=== PATIENT | male | born 1955 | race Caucasian/White ===

== ENCOUNTER 2022-10-11 12:23 | Inpatient (IN) | payer MEDICARE, BC ==
[2022-10-11] VITALS (8 sets, daily range): BP systolic 108–138; BP diastolic 46–73; PULSE 79–95; TEMP 98.4
[~2022-10-11] VITALS: Ht 182.9 cm; Wt 150.0 kg
[~2022-10-11 12:23] MED LIST: CALCIUM 600-D 61 TAB PO; CEFTIN 250250 MG/TAB PO; COREG12.5 MG PO; COZAAR100 MG PO; DIFICID200 MG PO; DITROPAN XL 5MG5 M1 PO; EFFEXOR XR37.5 MG/CA PO; ELIQUIS 5MG PO; EUTHYROX100 MCG PO; INLYTA1 MG PO; IRON TABLETS325 MG PO; KEYTRUDA25 MG/ML IV; LIPITOR 10MG10 MG PO; NORVASC 10MG10 MG PO; OXYGEN NASAL.CANN; RITALIN10 MG PO; SPIRIVA RE2.5 MCG/Ac IH; VITAMIN B-6100 MG PO; ZYRTEC ALLERGY10 MG PO
[2022-10-11 14:42] LABS: BASO % 0.4 % (0.0-2.0); EOS # 0.3 K/mm3 (0.0-0.7); EOS % 3.6 % (0.0-4.0); GRAN # 5.2 K/mm3 (1.4-6.5); GRAN % 69.6 % (42.2-75.2); HEMOGLOBIN 11.9 g/dl (13.5-18.0); LYMPH # 0.9 K/mm3 (1.2-3.4); LYMPH % 11.4 % (20.0-51.0); MEAN CELL VOLUME 89 fl (80.0-100.0); MEAN CORPUSCULAR HEMOGLOBIN 30 pg (27-31); MEAN CORPUSCULAR HGB CONC 33 g/dl (33.0-37.0); MEAN PLATELET VOLUME 10.4 fl (7.4-10.4); MONO # 1.1 K/mm3 (0.1-0.6); MONO % 14.7 % (1.7-9.3); PLATELET COUNT 225 K/mm3 (130-400); RED BLOOD COUNT 4.03 M/mm3 (4.20-5.60); REDCELL DISTRIBUTION WIDTH-CV 14.5 % (11.5-14.5)
[2022-10-11 14:47] LABS: HEMATOCRIT 35.9 % (42.0-52.0)
[2022-10-11 14:57] LABS: ALBUMIN 3.5 gm/dL (3.4-4.8); BILIRUBIN,TOTAL 0.7 mg/dL (0.2-1.2); CALCIUM 9.1 mg/dL (8.4-10.2); CREATININE, serum 1.38 mg/dL (0.72-1.25); TOTAL PROTEIN 7.3 gm/dL (6.2-8.1)
[2022-10-11 15:40] LABS: COLLECTION METHOD CLEAN CATCH
[2022-10-11 15:54] LABS: PH 8.5 (5.0-8.5); URINE APPEARANCE Cloudy (CLEAR/HAZY); URINE BLOOD 3+ (NEGATIVE); URINE COLOR Red (YELLOW); URINE GLUCOSE TRACE (NEGATIVE); URINE KETONE 1+ (NEGATIVE); URINE NITRATE Positive (NEGATIVE); URINE PROTEIN(semi-quant) 3+ (NEGATIVE)
[2022-10-11 16:12] LABS: SQUAMOUS EPITHELIAL None Seen /hpf (0-10); URINE BACTERIA None Seen /hpf (NONE SEEN); URINE RBC >50 /hpf (0-2)
[2022-10-12] VITALS (23 sets, daily range): BP systolic 71–125; BP diastolic 45–72; PULSE 66–134; TEMP 97.7–98.9
[2022-10-12 04:49] LABS: BASO % 0.4 % (0.0-2.0); EOS # 0.3 K/mm3 (0.0-0.7); EOS % 3.2 % (0.0-4.0); GRAN # 5.8 K/mm3 (1.4-6.5); GRAN % 74.9 % (42.2-75.2); HEMOGLOBIN 10.1 g/dl (13.5-18.0); LYMPH # 0.5 K/mm3 (1.2-3.4); LYMPH % 6.4 % (20.0-51.0); MEAN CORPUSCULAR HEMOGLOBIN 30 pg (27-31); MEAN CORPUSCULAR HGB CONC 32 g/dl (33.0-37.0); MEAN PLATELET VOLUME 10.4 fl (7.4-10.4); MONO # 1.2 K/mm3 (0.1-0.6); MONO % 14.8 % (1.7-9.3); PLATELET COUNT 186 K/mm3 (130-400); RED BLOOD COUNT 3.39 M/mm3 (4.20-5.60); REDCELL DISTRIBUTION WIDTH-CV 14.8 % (11.5-14.5)
[2022-10-12 04:52] LABS: HEMATOCRIT 31.7 % (42.0-52.0); MEAN CELL VOLUME 94 fl (80.0-100.0)
[2022-10-12 05:07] LABS: CREATININE, serum 1.14 mg/dL (0.72-1.25); MAGNESIUM 2.1 mg/dL (1.6-2.6); POTASSIUM 4.1 mmol/L (3.5-4.5)
--- NOTE | 2022-10-12 08:06 | NUR ---
RECEIVED REPORT FROM PACU NURSE AT 192. RECEIVED PT AT 194. PT ON CBI WITH THE COLOR OF THE OUTPUT IN THE OSULLIVAN TO BE LIGHT PICK IN THE TUBING AND RED IN THE BAG. PT DENIES HAVING PAIN AT THIS TIME. PT HAD TWO TIMES WHERE THE HR WENT UP IN THE 120'S AND THE FIRST TIME IT SEEMED IRREGULAR AND GOT PT ON TELE AND GOT AN EKG, HOSPITALIST WAS NOTIFED. WAS GOING TO START A CARDIZEM DRIP BUT PT'S HR WAS SR IN THE 80'S AND THE SECOND TIME THE HR WENT DOWN IN ABOUT 20 MINUTES. AROUND 0600 THE PT HAD 11 RUN OF V TACH RATE OF 174 EVANGELIDIS AND DAY SHIFT HOSPITALIST WERE NOTIFED. PT WENT THROUGH 20 BAGS OF CBI. PT HAD A CLOT TORWARD THE TOP THE THE [place]IVAN TUBING BUT FLUID WAS ABLE TO PASS, TRIED TO MASSAGE IT OUT BUT IT WOULD NOT MOVE, NOTIFED CHARGE. THIS NURSE KEPT AN EYE ON IT AND LET DAY SHIFT NURSE KNOW IN REPORT OF THIS AND THE OTHER EVENTS.
[2022-10-12] MEDS ORDERED: CEFTIN 250250 MG/TAB PO (08:25)
[2022-10-12 08:26] LABS: HEMOGLOBIN 10.2 g/dl (13.5-18.0)
[2022-10-12 08:38] LABS: HEMATOCRIT 30.9 % (42.0-52.0)
--- NOTE | 2022-10-12 08:45 | NUR ---
given status update on patient. Orders obtained. Patient made NPO. Bates placed to traction after hand irrigation completed. Few clots obtained. CBI remains to fast rate with jarrett red output. Cardiology was paged for consult & made aware urology would like hospitalist to be attending.
--- NOTE | 2022-10-12 11:20 | NUR ---
visited briefly with patient. Patient was waiting for a procedure. Spouse is a retired director of spa and guest experience. Nothing else needed at this time.
--- NOTE | 2022-10-12 13:00 | NUR ---
Dr.Evangelidis elam. Plan of care reviewed. Consent obtained prior to receiving pain medication. CBI off at this time. Paulo crowe DD.
--- NOTE | 2022-10-12 14:00 | NUR ---
Patient to the OR with Lucita, remains in room.
--- NOTE | 2022-10-12 16:15 | NUR ---
called & reminded of consult, he has yet to see patient. new order placed
[2022-10-12 16:16] LABS: HEMOGLOBIN 9.9 g/dl (13.5-18.0)
--- NOTE | 2022-10-12 16:50 | NUR ---
Called by telecommunications field engineer Max patient heart rate elevated, called & notified. Orders obtained. Coreg Po & Metoprolol Iv given per orders.
--- NOTE | 2022-10-12 17:00 | NUR ---
Patient having bladder pain/spasm. Order for Levsin & Azo Obtain from Dr. Hayward & given to patient for discomfort.
--- NOTE | 2022-10-12 17:30 | NUR ---
Patient called out due to continued increased pain. Patient given roxicodne for pain per patient request. Patient sena remains to DD with pale clear output. Hand irrigation completed to make sure no clots present. Patient denies nausea, ordering dinner.
--- NOTE | 2022-10-12 19:00 | NUR ---
Patient resting in bed. at bedside. Martita montoyaist PA at bedside. She was notifed of patient low BP and decreased mentation. STAT Orders obtained. IVF NS bolus infusing. Narcan given. Labs obtained. Bp is improving. Patient is experiencing pain now, but vitals stable and he is more alert. CBI continues at a slow rate with yellow clear urine, sena remains to traction. Plan of care was reviewed with patient and his . Macie night nurse at bedside as well to resume cares.
[2022-10-12 19:09] LABS: HEMATOCRIT 29.2 % (42.0-52.0); HEMOGLOBIN 9.3 g/dl (13.5-18.0)
[2022-10-12 19:20] LABS: CALCIUM 7.6 mg/dL (8.4-10.2); CREATININE, serum 1.58 mg/dL (0.72-1.25); POTASSIUM 4.3 mmol/L (3.5-4.5)
--- NOTE | 2022-10-12 21:28 | NUR ---
PT IN BED. HAS CPAP ON WITH O2 BLED IN. IS ALERT, DROWSY. OSULLIVAN TO BSD WITH CBI AT SLOW RATE, URINE YELLOW. PT REPORTS PRESSURE IN LOWER ABD, IRRIGATED CATHETER PER HIS REQUEST, NO CLOTS. HS MEDS GIVEN INCLUDING LEVSIN SL. IVF INFUSING TO RT PORT WITHOUT PROBLEM.
--- NOTE | 2022-10-12 23:13 | NUR ---
NOTIFIED SHLOMO RUELAS OF PTS RS=233'S, NEW ORDER FOR LOPRESSOR 2.5MG IVP, GIVEN AT THIS TIME. PT AGAIN REPORTS PRESSURE IN LOWER ABD, OSULLIVAN CLEAR YELLOW.
--- NOTE | 2022-10-12 23:50 | NUR ---
PTS [id number], REPORTED TO SHLOMO RUELAS, MEDICATED WITH LOPRESSOR 2.5MG IVP AT THIS TIME. PT GIVEN ES TYLENOL FOR LOWER ABD DISCOMFORT.
[2022-10-13] VITALS (8 sets, daily range): BP systolic 94–131; BP diastolic 47–61; PULSE 80–130; TEMP 97.5–984
--- NOTE | 2022-10-13 00:30 | NUR ---
PTS HR=80'S.
--- NOTE | 2022-10-13 02:00 | NUR ---
PT RESTING WITH CPAP ON. IVF INFUSING AT 125CC/HR TO RT PORT.
--- NOTE | 2022-10-13 06:00 | NUR ---
PT RESTED WELL SINCE ES TYLENOL GIVEN. IVF CONTINUE AT 125CC/HR TO RT PORT. LABS DRAWN.
--- NOTE | 2022-10-13 06:45 | NUR ---
PATIENT ASLEEP, RESTING IN BED, CPAP ON. CBI GOING, NO ISSUES, URINE A LIGHT CLEAR YELLOW AT THIS TIME. PATIENTS CALL LIGHT WITH IN REACH. HEART RATE NSR ON MONITOR, BLOOD PRESSURE AND HGB STABLE AT THIS TIME.
[2022-10-13 06:49] LABS: BASO % 0.3 % (0.0-2.0); EOS # 0.4 K/mm3 (0.0-0.7); EOS % 4.1 % (0.0-4.0); GRAN % 74.9 % (42.2-75.2); LYMPH # 0.6 K/mm3 (1.2-3.4); LYMPH % 6.7 % (20.0-51.0); MEAN CELL VOLUME 98 fl (80.0-100.0); MEAN CORPUSCULAR HGB CONC 30 g/dl (33.0-37.0); MONO # 1.3 K/mm3 (0.1-0.6); MONO % 13.8 % (1.7-9.3); PLATELET COUNT 180 K/mm3 (130-400); RED BLOOD COUNT 2.91 M/mm3 (4.20-5.60); REDCELL DISTRIBUTION WIDTH-CV 15.4 % (11.5-14.5)
[2022-10-13 06:55] LABS: HEMATOCRIT 28.4 % (42.0-52.0); HEMOGLOBIN 8.6 g/dl (13.5-18.0); MEAN CORPUSCULAR HEMOGLOBIN 30 pg (27-31)
[2022-10-13 07:11] LABS: CALCIUM 7.6 mg/dL (8.4-10.2); CREATININE, serum 1.72 mg/dL (0.72-1.25); MAGNESIUM 2.1 mg/dL (1.6-2.6)
--- NOTE | 2022-10-13 08:00 | NUR ---
PATIENT AWAKE AND ALERT IN BED. RN ASSISTED PATIENT TO REMOVE CPAP AND PLACE NC ON. PER RT MEGA, PATIENT HAS BEEN USING 5LNC DURING DAY. RN PLACED PATIENT ON 5LNC, RT TO SEE IF HE CAN TITRATE DOWN WHEN THEY ROUND. PATIENT ROLLED, TONY CHANGE, BLANCHABLE REDNESS NOTED TO SACRUM, PERICARE PROVIDED, MEPILEX PLACED TO SACRUM, GOWN CHANGED. OSULLIVAN INTACT. PATIENT CURRENTLY SITTING UP IN BED TO EAT BREAKFAST. CALL LIGHT WITH IN REACH.
[2022-10-13 14:20] LABS: HEMOGLOBIN 8.2 g/dl (13.5-18.0)
--- NOTE | 2022-10-13 14:33 | NUR ---
SW met with patient to complete intake. Patient states that he lives in [facility] with his spouse Gita [phone]. Patient provides that he utilizes a walker, is independent with ADL's and does not utilize HH services at this time. PCP is Dr. Dempsey, and pharmacy is [facility]. Patient provides that that spouse is DPOA/HC. Patient provides his plan is to return home upon DC. SW will continue to follow. DC plan: home
--- NOTE | 2022-10-13 18:40 | NUR ---
ATTEMPTED TO CALL NIGHT MD, NO ANSWER. WILL PASS ON
--- NOTE | 2022-10-13 20:20 | NUR ---
PT IN BED, IS ALERT AND ORIENTED X4. HAS OSULLIVAN TO BSD WITH SLOW CBI, URINE YELLOW. PT ASKED FOR MIRALAX, THIS WAS GIVEN WITH HS MEDS AT THIS TIME. PT DENIES BLADDER SPASMS AT THIS TIME. HAS CPAP ON WITH OXYGEN BLED IN.
[2022-10-13 20:24] LABS: HEMATOCRIT 24.9 % (42.0-52.0); HEMOGLOBIN 7.9 g/dl (13.5-18.0)
--- NOTE | 2022-10-13 22:44 | NUR ---
PT REPORTS "CONTRACTIONS" OF BLADDER. LEVSIN GIVEN. URINE REMAINS YELLOW.
--- NOTE | 2022-10-13 23:45 | NUR ---
PTS [id number], VSS. MEDICATED WITH SCHEDULED RYTHMOL MED PO. PT HR CONVERTED BACK TO 80'S IMMEDIATELY. PT HAD DENIED CHEST PAIN, BUT COULD TELL HIS RATE WAS FAST.
[2022-10-14] VITALS (7 sets, daily range): BP systolic 90–129; BP diastolic 46–72; PULSE 76–87; TEMP 97.9–98.5
--- NOTE | 2022-10-14 00:43 | NUR ---
PT REPORTS CONTINUED "CONTRACTIONS" OF HIS BLADDER. MEDICATED WITH OXYCODONE PER HIS REQUEST.
--- NOTE | 2022-10-14 04:00 | NUR ---
PT REPORTS RELIEF OF BLADDER SPASMS.
--- NOTE | 2022-10-14 06:03 | NUR ---
MEDICATED WITH AM MEDS. PRIMED CATHETER WITH 200CC NS AND DC'D AFTER BALLOON DEFLATED. URINE REMAINED YELLOW OVERNIGHT. BALLOON INTACT. PT GIVEN URINAL AND 6 CUPS IN BATHROOM. PT TOLERATED REMOVAL OF OSULLIVAN WITHOUT PROBLEM.
[2022-10-14 06:42] LABS: BASO % 0.1 % (0.0-2.0); EOS # 0.5 K/mm3 (0.0-0.7); EOS % 7.4 % (0.0-4.0); GRAN # 4.8 K/mm3 (1.4-6.5); GRAN % 71.2 % (42.2-75.2); LYMPH # 0.6 K/mm3 (1.2-3.4); LYMPH % 8.9 % (20.0-51.0); MEAN CELL VOLUME 94 fl (80.0-100.0); MEAN CORPUSCULAR HGB CONC 32 g/dl (33.0-37.0); MEAN PLATELET VOLUME 10.9 fl (7.4-10.4); MONO # 0.8 K/mm3 (0.1-0.6); PLATELET COUNT 168 K/mm3 (130-400); RED BLOOD COUNT 2.59 M/mm3 (4.20-5.60); REDCELL DISTRIBUTION WIDTH-CV 15.2 % (11.5-14.5)
[2022-10-14 06:47] LABS: HEMATOCRIT 24.4 % (42.0-52.0); HEMOGLOBIN 7.8 g/dl (13.5-18.0); MEAN CORPUSCULAR HEMOGLOBIN 30 pg (27-31)
[2022-10-14 06:58] LABS: CALCIUM 7.6 mg/dL (8.4-10.2); CREATININE, serum 1.25 mg/dL (0.72-1.25); MAGNESIUM 1.9 mg/dL (1.6-2.6); POTASSIUM 3.9 mmol/L (3.5-4.5)
--- NOTE | 2022-10-14 09:16 | NUR ---
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 stated that he "Likely has his bases covered," which brought a smile to patient.
--- NOTE | 2022-10-14 09:34 | NUR ---
Celery Cutter met with patient to review and present IM form. Patient verbalized understanding and provided signature. SW placed form in chart and provided copy to patient.
[2022-10-14 12:12] LABS: HEMATOCRIT 24.2 % (42.0-52.0); HEMOGLOBIN 7.8 g/dl (13.5-18.0)
--- NOTE | 2022-10-14 20:00 | NUR ---
Patient resting in bed. Minimal needs or complaints today. His at bedside. Echo was completed late in the afternoon. tele has been on without reports of elevated HR. He has completed voiding trial without problems, yellow clear urine. He had concerns with constipation, hospitalist team made aware. Tolerted diet without nausea. POrt to Int. Report to Anastasiia to resume cares.
[2022-10-15 03:15] VITALS: BP 122/66; PULSE 84; TEMP 97.8
[2022-10-15 05:30] LABS: BASO % 0.2 % (0.0-2.0); EOS # 0.6 K/mm3 (0.0-0.7); EOS % 10.5 % (0.0-4.0); GRAN % 68.6 % (42.2-75.2); LYMPH # 0.5 K/mm3 (1.2-3.4); LYMPH % 8.8 % (20.0-51.0); MEAN CELL VOLUME 93 fl (80.0-100.0); MEAN CORPUSCULAR HGB CONC 31 g/dl (33.0-37.0); MEAN PLATELET VOLUME 10.7 fl (7.4-10.4); MONO # 0.7 K/mm3 (0.1-0.6); MONO % 11.4 % (1.7-9.3); PLATELET COUNT 197 K/mm3 (130-400); RED BLOOD COUNT 2.71 M/mm3 (4.20-5.60); REDCELL DISTRIBUTION WIDTH-CV 15.2 % (11.5-14.5)
[2022-10-15 05:31] LABS: HEMATOCRIT 25.3 % (42.0-52.0); HEMOGLOBIN 7.9 g/dl (13.5-18.0); MEAN CORPUSCULAR HEMOGLOBIN 29 pg (27-31)
[2022-10-15 05:34] LABS: CALCIUM 7.9 mg/dL (8.4-10.2); CREATININE, serum 1.04 mg/dL (0.72-1.25)
--- NOTE | 2022-10-15 06:28 | NUR ---
pt on cpap during the noc, 2L O2, voiding without difficulty, clear yellow urine, NSR on tele. up to restroom ad art.
[2022-10-15] MEDS ORDERED: RYTHMOL 15150 MG/TAB PO (07:48)
[2022-10-15 08:00] VITALS: BP 131/68; PULSE 87; TEMP 97.8
[2022-10-15] MEDS ORDERED: CEFTIN 250250 MG/TAB PO (08:49)
--- NOTE | 2022-10-15 10:02 | NUR ---
Patient continued complaints of constipation, milk of magnesia given per request. Call light within reach.
--- NOTE | 2022-10-15 12:00 | NUR ---
Discharge instructions given both verbal and handwritten. Discussed f/u appt, s/s of infection, home medications and when to return to the ER. Portacath DCd without difficulty-needle intact. Escorted off pierce in wheelchair by PCT and spouse.
== END 2022-10-15 12:30 | disposition home or self-care (01) | DRG 669 ==
LOC: COL.ER 12:23 → SURG 18:16
PROVIDERS: Emergency Medicine Emergency Medical Services; Hospitalist; Physician Assistant; Student in an Organized Health Care Education/Training Program; ADMIT Urology
PROC: 0T5C8ZZ Destruction of Bladder Neck, Via Natural or Artificial Opening Endoscopic (ICD-10-PCS; 2022-10-11)
PROC: 0TCB8ZZ Extirpation of Matter from Bladder, Via Natural or Artificial Opening Endoscopic (ICD-10-PCS; principal; 2022-10-11 18:00)
PROC: 0T5C8ZZ Destruction of Bladder Neck, Via Natural or Artificial Opening Endoscopic (ICD-10-PCS; 2022-10-12)
PROC: 0TCB8ZZ Extirpation of Matter from Bladder, Via Natural or Artificial Opening Endoscopic (ICD-10-PCS; 2022-10-12)
DX: N30.41 Irradiation cystitis with hematuria (principal); C64.9 Malignant neoplasm of unspecified kidney, except renal pelvis; N13.6 Pyonephrosis; C78.00 Secondary malignant neoplasm of unspecified lung; I47.20 Ventricular tachycardia, unspecified; N17.9 Acute kidney failure, unspecified; F90.9 Attention-deficit hyperactivity disorder, unspecified type; F32.A Depression, unspecified; E03.9 Hypothyroidism, unspecified; I12.9 Hypertensive chronic kidney disease with stage 1 through stage 4 chronic kidney disease, or unspecified chronic kidney disease; G47.33 Obstructive sleep apnea (adult) (pediatric); E78.5 Hyperlipidemia, unspecified; K59.00 Constipation, unspecified; M19.90 Unspecified osteoarthritis, unspecified site; I48.91 Unspecified atrial fibrillation; N18.30 Chronic kidney disease, stage 3 unspecified; I95.9 Hypotension, unspecified; Z96.653 Presence of artificial knee joint, bilateral; D64.9 Anemia, unspecified; J44.9 Chronic obstructive pulmonary disease, unspecified; Z79.01 Long term (current) use of anticoagulants; Z79.890 Hormone replacement therapy; Z86.711 Personal history of pulmonary embolism; Z90.5 Acquired absence of kidney; Z90.49 Acquired absence of other specified parts of digestive tract; Z90.89 Acquired absence of other organs; Z99.81 Dependence on supplemental oxygen; Z23 Encounter for immunization
CPT/HCPCS: OP; G0378; J0690; J0696; J1170; J1644; J2270; J2310; J2370; J2405; J2704; J3010; J7030; J7120; Q9967

== ENCOUNTER 2022-10-29 10:58 | Outpatient (RCR) | payer MEDICARE, BC ==
[~2022-10-29 10:58] MED LIST changes: +RYTHMOL 15150 MG/TAB PO
== END 2022-11-08 | disposition home or self-care (01) ==
LOC: WSPT
DX: M54.42 Lumbago with sciatica, left side (principal); M54.41 Lumbago with sciatica, right side; G89.29 Other chronic pain; R53.81 Other malaise

== ENCOUNTER 2022-11-12 15:32 | Outpatient (RCR) | payer MEDICARE, BC | END 2022-12-08 | disposition home or self-care (01) | LOC: WSPT | DX: M54.41 Lumbago with sciatica, right side (principal); M54.42 Lumbago with sciatica, left side; R53.81 Other malaise; G89.29 Other chronic pain ==

== ENCOUNTER → 2022-11-27 | Outpatient (CLI) | payer MEDICARE, BC | LOC: COL.RAD 09:24 | DX: C61 Malignant neoplasm of prostate (principal); C64.1 Malignant neoplasm of right kidney, except renal pelvis; R91.1 Solitary pulmonary nodule | CPT/HCPCS: J1644; Q9967 ==